=== PATIENT | male | born 1935 | race Caucasian/White ===

== ENCOUNTER 2023-11-22 11:36 | Inpatient (IN) | payer OTHER, BC ==
[~2023-11-22] VITALS: Ht 182.9 cm; Wt 99.3 kg
[2023-11-22 11:38] VITALS: BP_SYST 129; PULSE 61; RESP 16; TEMP 97.8; O2SAT 98
[2023-11-22 12:06] LABS: BASOPHILS % (AUTO) 0.8 % (0.0-2.0); EOSINOPHILS # (AUTO) 0.2 K/uL (0.0-0.4); EOSINOPHILS % (AUTO) 3.3 % (0.0-4.0); HEMATOCRIT 31.8 % (36-54); HEMOGLOBIN 10.9 g/dL (14.0-18.0); LYMPHOCYTES # (AUTO) 1.1 K/uL (1.0-5.5); LYMPHOCYTES % (AUTO) 19.3 % (20.5-51.5); MEAN CORPUSCULAR HEMOGLOBIN 32 pg (27-31); MEAN CORPUSCULAR HGB CONC 34 % (32-36); MEAN CORPUSCULAR VOLUME 92 fL (79.0-98.0); MONOCYTES # (AUTO) 0.4 K/uL (0.0-1.0); MONOCYTES % (AUTO) 6.6 % (1.7-9.3); NEUTROPHILS # (AUTO) 4.1 K/uL (1.8-7.7); PLATELET COUNT (AUTO) 111 K/uL (130-430); RED BLOOD CELL COUNT(AUTO) 3.45 MIL/uL (4.2-6.2); RED CELL DISTRIBUTION WIDTH 13.6 % (9.0-15.0); WHITE BLOOD COUNT (AUTO) 5.9 K/uL (4.8-10.8)
[2023-11-22 12:17] LABS: ALANINE AMINOTRANSFERASE 24 U/L (12-78); ALBUMIN 3.4 g/dL (3.4-4.8); ANION GAP 7 (5-15); ASPARTATE AMINOTRANSFERASE 18 U/L (10-37); CALCIUM 8.7 mg/dL (8.4-11.0); CARBON DIOXIDE 25 mmol/L (23-29); CHLORIDE 107 mmol/L (98-107); CREATININE 1.39 mg/dL (0.55-1.30); GLUCOSE 120 mg/dL (74-106); POTASSIUM 4.5 mmol/L (3.5-5.1); SODIUM SERUM 139 mmol/L (136-145); TOTAL BILIRUBIN 0.6 mg/dL (0.0-1.0); TOTAL PROTEIN, SERUM 6.7 g/dL (6.4-8.3); UREA NITROGEN, BLOOD 31 mg/dL (8-21)
[2023-11-22 12:19] LABS: BILIRUBIN,DIRECT 0.2 mg/dL (0.0-0.3)
[2023-11-22 13:52] LABS: BILIRUBIN,URINE NEGATIVE (NEGATIVE); BLOOD, URINE NEGATIVE (NEGATIVE); CLARITY/URINE CLEAR (CLEAR); COLOR,URINE YELLOW (YELLOW); GLUCOSE,URINE NEGATIVE (NEGATIVE); KETONES,URINE NEGATIVE (NEGATIVE); LEUKOCYTE ESTERASE ,URINE NEGATIVE (NEGATIVE); NITRITE, URINE NEGATIVE (NEGATIVE); PROTEIN URINE NEGATIVE (NEGATIVE); UROBILINOGEN,URINE 0.2 (0.2-1.0)
[2023-11-22] MEDS ORDERED: IRBE300T40 PO (14:06)
[2023-11-22] MEDS ORDERED: GABA300T25 PO (14:06)
[2023-11-22] MEDS ORDERED: AMLO5TAB92 PO (14:06)
[2023-11-22] MEDS ORDERED: ESCI10TA PO (14:06)
[2023-11-22] MEDS ORDERED: NITR0.4T47 SL (14:06)
[2023-11-22] MEDS ORDERED: METF-379 PO (14:06)
[2023-11-22] MEDS ORDERED: ATOR40TA68 PO (14:06)
[2023-11-22] MEDS ORDERED: FURO-149 PO (14:06)
[2023-11-22] MEDS ORDERED: ACETAMINOPHEN 325 MG TABLET PO PRN ×2 (15:00→15:15)
[2023-11-22 16:42] VITALS: BP_SYST 141; PULSE 60; RESP 15; TEMP 97.9
[2023-11-22] MEDS: D5/0.45 NS 500 ML IV ONE (17:32)
[2023-11-22 19:00] VITALS: O2SAT 100
[2023-11-22] MEDS ORDERED: niCARdipine 25 MG in D5W 240 ML IV PRN (19:00)
[2023-11-22 21:00] VITALS: BP_SYST 151; PULSE 60; RESP 20; TEMP 98.6; O2SAT 98
[2023-11-22] MEDS: ATORVASTATIN 20 MG TABLET PO ONE (21:12)
[2023-11-22] MEDS: ASPIRIN 325 MG TABLET PO ONE (21:12)
[2023-11-22] MEDS: HEPARIN SODIUM,PORCINE 5,000 UNITS/ML VIAL SUBCUT SCH (21:14)
[2023-11-22 21:31] LABS: PHOSPHORUS 3.8 mg/dL (2.7-4.5)
[2023-11-23] VITALS (7 sets, daily range): BP systolic 134–158; PULSE 60–98; RESP 15–20; TEMP 96.3–98.4; O2SAT 95–99
[2023-11-23 05:35] LABS: BASOPHILS % (AUTO) 0.8 % (0.0-2.0); EOSINOPHILS # (AUTO) 0.2 K/uL (0.0-0.4); EOSINOPHILS % (AUTO) 4.3 % (0.0-4.0); HEMATOCRIT 31.1 % (36-54); HEMOGLOBIN 10.8 g/dL (14.0-18.0); LYMPHOCYTES # (AUTO) 1.4 K/uL (1.0-5.5); LYMPHOCYTES % (AUTO) 28.2 % (20.5-51.5); MEAN CORPUSCULAR HEMOGLOBIN 32 pg (27-31); MEAN CORPUSCULAR HGB CONC 35 % (32-36); MEAN CORPUSCULAR VOLUME 91 fL (79.0-98.0); MONOCYTES # (AUTO) 0.3 K/uL (0.0-1.0); MONOCYTES % (AUTO) 6.9 % (1.7-9.3); NEUTROPHILS # (AUTO) 2.9 K/uL (1.8-7.7); NEUTROPHILS % (AUTO) 59.8 % (40.0-70.0); PLATELET COUNT (AUTO) 105 K/uL (130-430); RED BLOOD CELL COUNT(AUTO) 3.43 MIL/uL (4.2-6.2); RED CELL DISTRIBUTION WIDTH 13.3 % (9.0-15.0); WHITE BLOOD COUNT (AUTO) 4.8 K/uL (4.8-10.8)
[2023-11-23 06:11] LABS: ALANINE AMINOTRANSFERASE 19 U/L (12-78); ALBUMIN 3.2 g/dL (3.4-4.8); ANION GAP 6 (5-15); ASPARTATE AMINOTRANSFERASE 19 U/L (10-37); CALCIUM 8.8 mg/dL (8.4-11.0); CARBON DIOXIDE 26 mmol/L (23-29); CHLORIDE 109 mmol/L (98-107); CREATININE 1.06 mg/dL (0.55-1.30); GLUCOSE 123 mg/dL (74-106); POTASSIUM 5.1 mmol/L (3.5-5.1); SODIUM SERUM 141 mmol/L (136-145); TOTAL BILIRUBIN 0.4 mg/dL (0.0-1.0); TOTAL PROTEIN, SERUM 6.6 g/dL (6.4-8.3); UREA NITROGEN, BLOOD 24 mg/dL (8-21)
[2023-11-23 08:08] LABS: INR 1.1 (0.80-1.20); PROTHROMBIN TIME 11.3 SECS (9.5-12.5)
[2023-11-23] MEDS: CITALOPRAM HYDROBROMIDE 20 MG TABLET PO SCH (08:41)
[2023-11-23] MEDS: ATORVASTATIN 20 MG TABLET PO SCH (08:41)
[2023-11-23] MEDS: ASPIRIN 325 MG TABLET PO SCH (08:41)
[2023-11-23] MEDS: INSULIN REGULAR, HUMAN 100 UNITS/ML, 3 ML VIAL (humuLIN R) SUBCUT PRN (10:25)
[2023-11-23] MEDS: NIFEdipine 30 MG TAB.ER.24 PO ONE (15:04)
[2023-11-23] MEDS: FUROSEMIDE 20 MG TABLET PO ONE (15:04)
[2023-11-24 00:21] VITALS: BP_SYST 137; PULSE 52; RESP 16; TEMP 97.3; O2SAT 97
[2023-11-24 07:00] VITALS: O2SAT 96
[2023-11-24 08:00] VITALS: BP_SYST 136; PULSE 86; RESP 18; TEMP 97.8; O2SAT 96
[2023-11-24] MEDS: NIFEdipine 30 MG TAB.ER.24 PO SCH (09:43)
[2023-11-24] MEDS: FUROSEMIDE 20 MG TABLET PO SCH (09:44)
[2023-11-24 12:00] VITALS: BP_SYST 144; PULSE 96; RESP 18; TEMP 98; O2SAT 96
[2023-11-24 16:00] VITALS: BP_SYST 139; PULSE 60; RESP 18; TEMP 97.3; O2SAT 97
[2023-11-24 16:20] LABS: BASOPHILS % (AUTO) 0.7 % (0.0-2.0); EOSINOPHILS # (AUTO) 0.3 K/uL (0.0-0.4); EOSINOPHILS % (AUTO) 4.1 % (0.0-4.0); HEMATOCRIT 36.3 % (36-54); HEMOGLOBIN 12.8 g/dL (14.0-18.0); LYMPHOCYTES # (AUTO) 1.5 K/uL (1.0-5.5); LYMPHOCYTES % (AUTO) 22.8 % (20.5-51.5); MEAN CORPUSCULAR HEMOGLOBIN 32 pg (27-31); MEAN CORPUSCULAR HGB CONC 35 % (32-36); MEAN CORPUSCULAR VOLUME 90 fL (79.0-98.0); MONOCYTES # (AUTO) 0.3 K/uL (0.0-1.0); MONOCYTES % (AUTO) 5.3 % (1.7-9.3); NEUTROPHILS # (AUTO) 4.4 K/uL (1.8-7.7); NEUTROPHILS % (AUTO) 67.1 % (40.0-70.0); PLATELET COUNT (AUTO) 133 K/uL (130-430); RED BLOOD CELL COUNT(AUTO) 4.04 MIL/uL (4.2-6.2); RED CELL DISTRIBUTION WIDTH 13.7 % (9.0-15.0); WHITE BLOOD COUNT (AUTO) 6.5 K/uL (4.8-10.8)
[2023-11-24 16:38] LABS: ALANINE AMINOTRANSFERASE 26 U/L (12-78); ALBUMIN 3.9 g/dL (3.4-4.8); ANION GAP 10 (5-15); ASPARTATE AMINOTRANSFERASE 19 U/L (10-37); CALCIUM 9.3 mg/dL (8.4-11.0); CARBON DIOXIDE 25 mmol/L (23-29); CHLORIDE 102 mmol/L (98-107); CREATININE 1.19 mg/dL (0.55-1.30); GLUCOSE 114 mg/dL (74-106); POTASSIUM 4.6 mmol/L (3.5-5.1); SODIUM SERUM 137 mmol/L (136-145); TOTAL BILIRUBIN 0.6 mg/dL (0.0-1.0); TOTAL PROTEIN, SERUM 7.9 g/dL (6.4-8.3); UREA NITROGEN, BLOOD 22 mg/dL (8-21)
[2023-11-24 20:00] VITALS: BP_SYST 146; PULSE 93; RESP 18; TEMP 97.8; O2SAT 95
[2023-11-25] VITALS: BP_SYST 124; PULSE 64; RESP 18; TEMP 98; O2SAT 9
[2023-11-25 04:40] LABS: BASOPHILS # (AUTO) 0.1 K/uL (0.0-0.2); BASOPHILS % (AUTO) 0.9 % (0.0-2.0); EOSINOPHILS # (AUTO) 0.2 K/uL (0.0-0.4); EOSINOPHILS % (AUTO) 3.5 % (0.0-4.0); HEMATOCRIT 31.7 % (36-54); LYMPHOCYTES # (AUTO) 1.8 K/uL (1.0-5.5); LYMPHOCYTES % (AUTO) 26.2 % (20.5-51.5); MEAN CORPUSCULAR HEMOGLOBIN 31 pg (27-31); MEAN CORPUSCULAR HGB CONC 35 % (32-36); MEAN CORPUSCULAR VOLUME 90 fL (79.0-98.0); MONOCYTES # (AUTO) 0.5 K/uL (0.0-1.0); MONOCYTES % (AUTO) 6.7 % (1.7-9.3); NEUTROPHILS # (AUTO) 4.3 K/uL (1.8-7.7); NEUTROPHILS % (AUTO) 62.7 % (40.0-70.0); PLATELET COUNT (AUTO) 120 K/uL (130-430); RED BLOOD CELL COUNT(AUTO) 3.51 MIL/uL (4.2-6.2); RED CELL DISTRIBUTION WIDTH 13.5 % (9.0-15.0); WHITE BLOOD COUNT (AUTO) 6.8 K/uL (4.8-10.8)
[2023-11-25 04:45] LABS: ANION GAP 6 (5-15); CALCIUM 9.2 mg/dL (8.4-11.0); CARBON DIOXIDE 28 mmol/L (23-29); CHLORIDE 104 mmol/L (98-107); CREATININE 1.14 mg/dL (0.55-1.30); GLUCOSE 111 mg/dL (74-106); POTASSIUM 4.4 mmol/L (3.5-5.1); SODIUM SERUM 138 mmol/L (136-145); UREA NITROGEN, BLOOD 25 mg/dL (8-21)
[2023-11-25 08:00] VITALS: BP_SYST 142; PULSE 60; RESP 15; TEMP 95.9; O2SAT 97
[2023-11-25 10:49] VITALS: O2SAT 97
[2023-11-25 12:30] VITALS: BP_SYST 133; PULSE 64; RESP 17; TEMP 97.4; O2SAT 98
[2023-11-25 16:24] VITALS: BP_SYST 122; PULSE 74; RESP 16; TEMP 97.2; O2SAT 97
[2023-11-25 20:00] VITALS: BP_SYST 136; PULSE 64; RESP 16; TEMP 97.5; O2SAT 96
[2023-11-26] VITALS: BP_SYST 125; PULSE 68; RESP 18; TEMP 97.4; O2SAT 97
[2023-11-26 04:21] VITALS: TEMP 97.6
[2023-11-26 04:28] LABS: BASOPHILS % (AUTO) 0.7 % (0.0-2.0); EOSINOPHILS # (AUTO) 0.2 K/uL (0.0-0.4); EOSINOPHILS % (AUTO) 3.5 % (0.0-4.0); HEMATOCRIT 32.1 % (36-54); HEMOGLOBIN 11.3 g/dL (14.0-18.0); LYMPHOCYTES # (AUTO) 1.9 K/uL (1.0-5.5); LYMPHOCYTES % (AUTO) 28.6 % (20.5-51.5); MEAN CORPUSCULAR HEMOGLOBIN 31 pg (27-31); MEAN CORPUSCULAR HGB CONC 35 % (32-36); MEAN CORPUSCULAR VOLUME 89 fL (79.0-98.0); MONOCYTES # (AUTO) 0.5 K/uL (0.0-1.0); NEUTROPHILS # (AUTO) 3.9 K/uL (1.8-7.7); NEUTROPHILS % (AUTO) 60.2 % (40.0-70.0); PLATELET COUNT (AUTO) 121 K/uL (130-430); RED BLOOD CELL COUNT(AUTO) 3.61 MIL/uL (4.2-6.2); RED CELL DISTRIBUTION WIDTH 13.5 % (9.0-15.0); WHITE BLOOD COUNT (AUTO) 6.5 K/uL (4.8-10.8)
[2023-11-26 05:03] LABS: ANION GAP 9 (5-15); CALCIUM 9.2 mg/dL (8.4-11.0); CARBON DIOXIDE 27 mmol/L (23-29); CHLORIDE 102 mmol/L (98-107); CREATININE 1.23 mg/dL (0.55-1.30); GLUCOSE 123 mg/dL (74-106); POTASSIUM 4.2 mmol/L (3.5-5.1); SODIUM SERUM 138 mmol/L (136-145); UREA NITROGEN, BLOOD 26 mg/dL (8-21)
[2023-11-26 08:00] VITALS: BP_SYST 132; PULSE 62; RESP 18; TEMP 97.5; O2SAT 96
[2023-11-26] MEDS ORDERED: ASPI-1393 PO (13:10)
[2023-11-26 16:17] VITALS: BP_SYST 115; PULSE 60; RESP 18; TEMP 98; O2SAT 97
[2023-11-27] MEDS ORDERED: FURO40TA5 PO (17:52)
[2023-11-27] MEDS ORDERED: SPIR25TA6 PO (17:52)
[2023-11-27] MEDS ORDERED: ESCI-6 PO (17:52)
[2023-11-27] MEDS ORDERED: GABA250S6 (17:52)
[2023-11-27] MEDS ORDERED: IRBESARTAN (17:52)
[2023-11-27] MEDS ORDERED: IRBE1TAB65 (18:40)
== END 2023-11-26 16:56 | disposition home or self-care (01) | DRG 68 ==
LOC: SED 11:36 → STU 14:47
PROVIDERS: ADMIT Student in an Organized Health Care Education/Training Program; ATTEND Student in an Organized Health Care Education/Training Program
PROC: 4A00X4Z Measurement of Central Nervous Electrical Activity, External Approach (ICD-10-PCS; principal; 2023-11-24)
DX: I65.22 Occlusion and stenosis of left carotid artery (principal); N17.9 Acute kidney failure, unspecified; I48.20 Chronic atrial fibrillation, unspecified; E78.5 Hyperlipidemia, unspecified; I10 Essential (primary) hypertension; G62.9 Polyneuropathy, unspecified; I35.0 Nonrheumatic aortic (valve) stenosis; D64.9 Anemia, unspecified; I95.9 Hypotension, unspecified; E11.65 Type 2 diabetes mellitus with hyperglycemia; F32.A Depression, unspecified; Z86.73 Personal history of transient ischemic attack (TIA), and cerebral infarction without residual deficits; Z79.82 Long term (current) use of aspirin; Z79.84 Long term (current) use of oral hypoglycemic drugs; Z79.899 Other long term (current) drug therapy
CPT/HCPCS: 36415; 70450-TC; 71045; 80048; 80053; 80076; 81001; 81003; 82948; 83037; 83735; 84100; 84443; 84484; 85025; 85610; 85730; 93005; 93306; 93880; 95816; 97110-GP; 97116-GP; 97163-GP; 97530-GP; 99285; G0378; J1644; J1815

== ENCOUNTER 2023-11-27 14:45 | Inpatient (IN) | payer OTHER, BC ==
[~2023-11-27] VITALS: Ht 182.9 cm; Wt 99.3 kg
[~2023-11-27 14:45] MED LIST: AMLO5TAB92 PO; ASPI-1393 PO; ATOR40TA68 PO; ESCI10TA PO; FURO-149 PO; GABA300T25 PO; IRBE300T40 PO; METF-379 PO; NITR0.4T47 SL
[2023-11-27 14:51] VITALS: BP_SYST 98; PULSE 68; RESP 16; TEMP 97.6; O2SAT 98
[2023-11-27] MEDS: NACL 0.9% 1,000 ML IV ONE (15:12)
[2023-11-27 15:39] LABS: BASOPHILS % (AUTO) 0.8 % (0.0-2.0); EOSINOPHILS # (AUTO) 0.2 K/uL (0.0-0.4); EOSINOPHILS % (AUTO) 3.6 % (0.0-4.0); HEMATOCRIT 31.4 % (36-54); LYMPHOCYTES # (AUTO) 1.3 K/uL (1.0-5.5); LYMPHOCYTES % (AUTO) 23.1 % (20.5-51.5); MEAN CORPUSCULAR HEMOGLOBIN 31 pg (27-31); MEAN CORPUSCULAR HGB CONC 35 % (32-36); MEAN CORPUSCULAR VOLUME 89 fL (79.0-98.0); MONOCYTES # (AUTO) 0.4 K/uL (0.0-1.0); MONOCYTES % (AUTO) 7.2 % (1.7-9.3); NEUTROPHILS # (AUTO) 3.7 K/uL (1.8-7.7); NEUTROPHILS % (AUTO) 65.3 % (40.0-70.0); PLATELET COUNT (AUTO) 121 K/uL (130-430); RED BLOOD CELL COUNT(AUTO) 3.52 MIL/uL (4.2-6.2); RED CELL DISTRIBUTION WIDTH 13.9 % (9.0-15.0); WHITE BLOOD COUNT (AUTO) 5.6 K/uL (4.8-10.8)
[2023-11-27 15:56] LABS: ALANINE AMINOTRANSFERASE 47 U/L (12-78); ALBUMIN 3.3 g/dL (3.4-4.8); ANION GAP 8 (5-15); ASPARTATE AMINOTRANSFERASE 37 U/L (10-37); CALCIUM 8.6 mg/dL (8.4-11.0); CARBON DIOXIDE 25 mmol/L (23-29); CHLORIDE 105 mmol/L (98-107); CREATININE 1.42 mg/dL (0.55-1.30); GLUCOSE 105 mg/dL (74-106); POTASSIUM 4.4 mmol/L (3.5-5.1); SODIUM SERUM 138 mmol/L (136-145); TOTAL BILIRUBIN 0.5 mg/dL (0.0-1.0); TOTAL PROTEIN, SERUM 6.5 g/dL (6.4-8.3); UREA NITROGEN, BLOOD 34 mg/dL (8-21)
[2023-11-27 15:59] LABS: BILIRUBIN,DIRECT 0.2 mg/dL (0.0-0.3); INR 1.1 (0.80-1.20)
[2023-11-27 16:17] LABS: BILIRUBIN,URINE NEGATIVE (NEGATIVE); BLOOD, URINE NEGATIVE (NEGATIVE); CLARITY/URINE CLEAR (CLEAR); COLOR,URINE YELLOW (YELLOW); GLUCOSE,URINE NEGATIVE (NEGATIVE); KETONES,URINE NEGATIVE (NEGATIVE); LEUKOCYTE ESTERASE ,URINE NEGATIVE (NEGATIVE); NITRITE, URINE NEGATIVE (NEGATIVE); PROTEIN URINE NEGATIVE (NEGATIVE); UROBILINOGEN,URINE 0.2 (0.2-1.0)
[2023-11-27] MEDS ORDERED: ESCI-6 PO (17:52)
[2023-11-27] MEDS ORDERED: FURO40TA5 PO (17:52)
[2023-11-27] MEDS ORDERED: SPIR25TA6 PO (17:52)
[2023-11-27] MEDS ORDERED: IRBESARTAN (17:52)
[2023-11-27] MEDS ORDERED: GABA250S6 (17:52)
[2023-11-27] MEDS ORDERED: IRBE1TAB65 (18:40)
[2023-11-27] MEDS ORDERED: DEXTROSE 50% JECT 50 ML DISP.SYRIN IVP PRN (21:15)
[2023-11-27] MEDS ORDERED: INSULIN REGULAR, HUMAN 100 UNITS/ML, 3 ML VIAL (humuLIN R) SUBCUT PRN (21:15)
[2023-11-28] VITALS: BP_SYST 120; PULSE 68; RESP 16; TEMP 97.9; O2SAT 96
[2023-11-28 08:13] VITALS: BP_SYST 118; PULSE 91; RESP 16; TEMP 97.1; O2SAT 100
[2023-11-28] MEDS: FUROSEMIDE 40 MG TABLET PO SCH (09:00)
[2023-11-28] MEDS: SPIRONOLACTONE 25 MG TABLET (ALDACTONE) PO SCH (09:00)
[2023-11-28] MEDS ORDERED: ESCITALOPRAM OXALATE 10 MG TABLET PO SCH (09:00)
[2023-11-28] MEDS: ATORVASTATIN 20 MG TABLET PO SCH (09:37)
[2023-11-28] MEDS: metFORMIN HCL 500 MG TABLET PO SCH (09:37)
[2023-11-28] MEDS: amLODIPine BESYLATE 5 MG TABLET PO SCH (09:38)
[2023-11-28] MEDS: ASPIRIN 81 MG TABLET(ECOTRIN) PO SCH (09:38)
[2023-11-28] MEDS: CITALOPRAM HYDROBROMIDE 20 MG TABLET PO SCH (09:38)
[2023-11-28] MEDS: LOSARTAN POTASSIUM 50 MG TABLET (COZAAR) PO SCH (09:39)
[2023-11-28 13:05] VITALS: BP_SYST 128; PULSE 60; RESP 18; TEMP 98.3
== END 2023-11-28 12:45 | disposition left against medical advice (07) | DRG 640 ==
LOC: SED 14:45 → STU 18:38
PROVIDERS: ADMIT Internal Medicine; ATTEND Internal Medicine
DX: E86.0 Dehydration (principal); N17.0 Acute kidney failure with tubular necrosis; I48.20 Chronic atrial fibrillation, unspecified; I50.30 Unspecified diastolic (congestive) heart failure; I35.0 Nonrheumatic aortic (valve) stenosis; E11.9 Type 2 diabetes mellitus without complications; D69.6 Thrombocytopenia, unspecified; I11.0 Hypertensive heart disease with heart failure; D64.9 Anemia, unspecified; I25.10 Atherosclerotic heart disease of native coronary artery without angina pectoris; Z95.5 Presence of coronary angioplasty implant and graft; Z79.84 Long term (current) use of oral hypoglycemic drugs; Z79.82 Long term (current) use of aspirin; Z79.899 Other long term (current) drug therapy; Z95.0 Presence of cardiac pacemaker
CPT/HCPCS: 36415; 71045; 80048; 80076; 81001; 81003; 82948; 83605; 84484; 85025; 85610; 85730; 87040; 87081; 87086; 93005; 99285; G0378